=== PATIENT | male | born 2000 | race African-American/Black ===

== ENCOUNTER 2022-10-04 21:17 | Emergency (ER) | payer OTHER ==
[~2022-10-04] VITALS: Ht 170.2 cm; Wt 85.0 kg
[2022-10-05 00:25] VITALS: BP 135/69
[2022-10-05] MEDS ORDERED: IBUPROFEN 600MG TAB PO ONE (00:55)
[2022-10-05] MEDS ORDERED: IBUP-1022 PO (01:02)
== END 2022-10-05 01:19 | disposition home or self-care (01) ==
LOC: M ED 21:17
DX: S93.501A Unspecified sprain of right great toe, initial encounter (principal); X50.0XXA Overexertion from strenuous movement or load, initial encounter; Y92.009 Unspecified place in unspecified non-institutional (private) residence as the place of occurrence of the external cause; F17.290 Nicotine dependence, other tobacco product, uncomplicated

== ENCOUNTER 2024-06-19 07:48 | Emergency (ER) | payer OTHER ==
[~2024-06-19] VITALS: Ht 175.3 cm; Wt 93.2 kg
[~2024-06-19 07:48] MED LIST: IBUP-1022 PO
[2024-06-19 08:52] VITALS: BP 131/61; TEMP 97.4; O2SAT 98
== END 2024-06-19 09:03 | disposition home or self-care (01) ==
LOC: EDBD 07:48 → M ED 07:48
DX: S00.90XA Unspecified superficial injury of unspecified part of head, initial encounter (principal); M54.2 Cervicalgia; Y92.9 Unspecified place or not applicable; Y93.9 Activity, unspecified; Y99.1 Military activity; Z91.013 Allergy to seafood; Z79.1 Long term (current) use of non-steroidal anti-inflammatories (NSAID)

== ENCOUNTER 2025-05-17 14:28 | Emergency (ER) | payer OTHER ==
[~2025-05-17] VITALS: Ht 165.1 cm; Wt 96.3 kg
[2025-05-17 17:40] VITALS: TEMP 98
[2025-05-17] MEDS: OFLOXACIN 0.3 % (OCUFLOX) OPTH SOL 5ML OS ONE (19:30)
[2025-05-17] MEDS: FLUORESCEIN OPHTH 1 MG STRIP OS ONE (19:38)
[2025-05-17] MEDS: PROPARACAINE 0.5% OPHTH SOL 15ML OS ONE (19:38)
[2025-05-17 19:43] VITALS: O2SAT 99
[2025-05-17 19:46] VITALS: BP 150/79
[2025-05-17] MEDS ORDERED: OFLO5DRO OS (19:49)
== END 2025-05-17 20:20 | disposition home or self-care (01) ==
LOC: M ED 14:28
DX: S05.02XA Injury of conjunctiva and corneal abrasion without foreign body, left eye, initial encounter (principal); Y92.9 Unspecified place or not applicable; Y93.9 Activity, unspecified; Y99.9 Unspecified external cause status; Z91.013 Allergy to seafood; Z79.2 Long term (current) use of antibiotics